=== PATIENT | female | born 1955 | race Caucasian/White ===

== ENCOUNTER 2017-10-24 21:33 | Emergency (ER) | payer BC ==
--- NOTE | 2017-10-24 22:28 | EDM.PDOC ---
ED HPI GENERAL MEDICAL PROBLEM - General Chief Complaint: Headache Stated Complaint: high blood pressure Time Seen by Provider: 10/24/17 22:06 Source of Information: Reports: Patient, Family (daughters) History Limitations: Reports: No Limitations - History of Present Illness INITIAL COMMENTS - FREE TEXT/NARRATIVE: Patient presents with episode of high blood pressure and a feeling of tingling and pain in both arms that she noticed about 5 hours ago. The symptoms persisted about 4 hours. Her mother's hospice nurse was there so checked her blood pressure at 189/90. She denies chest pain. She doesn't smoke and denies diabetes. She is under quite a bit of stress with her mother's deteriorating health. She denies any cardiac history. - Related Data Allergies Allergy/AdvReac Type Severity Reaction Status Date / Time No Known Drug Allergies Allergy Cannot Verified 10/24/17 21:50 Remember Home Meds: Home Meds Calcium Citrate/Vitamin D2 [Travis-Citrate Plus Vitamin D Tab] 1 tab PO DAILY 10/24 [History] Cholecalciferol (Vitamin D3) [Vitamin D] 5,000 units PO DAILY 10/24/17 [History] Loratadine 10 mg PO DAILY 10/24/17 [History] Magnesium 250 mg PO DAILY 10/24/17 [History] Melatonin 5 mg PO BEDTIME PRN 10/24/17 [History] Meloxicam 7.5 mg PO DAILY 10/24/17 [History] Pseudoephedrine HCl 60 mg PO BEDTIME 10/24/17 [History] Pseudoephedrine [Sudafed 12 Hour] 120 mg PO DAILY 10/24/17 [History] Venlafaxine [Effexor XR] 150 mg PO DAILY 10/24/17 [History] Vitamin 1 tab PO DAILY 10/24/17 [History] amLODIPine Besylate [Norvasc] 5 mg PO DAILY 10/24/17 [History] tiZANidine [Zanaflex] 4 mg PO TID PRN 10/24/17 [History] ED ROS GENERAL - Review of Systems Review Of Systems: See Below Constitutional: Denies: Fever, Chills, Malaise, Weakness, Diaphoresis HEENT: Reports: Other (For about a week she has sometimes had jaw pain when biting/chewing). Denies: Ear Pain, Vision Change Respiratory: Denies: Shortness of Breath, Cough Cardiovascular: Denies: Chest Pain, Lightheadedness, Syncope Endocrine: Reports: No Symptoms GI/Abdominal: Denies: Abdominal Pain, Diarrhea, Nausea, Vomiting : Denies: Dysuria, Flank Pain Musculoskeletal: Denies: Neck Pain, Shoulder Pain, Back Pain Skin: Denies: Cyanosis, Jaundice, Mottled, Pallor, Diaphoresis Neurological: Denies: Confusion, Dizziness, Headache, Seizure, Syncope, Trouble Speaking, Difficulty Walking Psychiatric: Reports: Anxiety. Denies: Agitation, Confusion ED EXAM, GENERAL - Physical Exam Exam: See Below Exam Limited By: No Limitations General Appearance: Alert, WD/WN, No Apparent Distress Eye Exam: Bilateral Eye: EOMI, Normal Inspection, PERRL Ears: Normal External Exam, Hearing Grossly Normal Nose: Normal Inspection, No Blood Throat/Mouth: Normal Inspection, Normal Lips, Normal Oropharynx, Normal Voice, No Airway Compromise Head: Atraumatic, Normocephalic Neck: Normal Inspection, Supple, Non-Tender, Full Range of Motion. No: Carotid Bruit, Lymphadenopathy (L), Lymphadenopathy (R) Respiratory/Chest: No Respiratory Distress, Lungs Clear, Normal Breath Sounds, No Accessory Muscle Use Cardiovascular: Normal Peripheral Pulses, Regular Rate, Rhythm, No Edema, No Gallop, No JVD, No Murmur Peripheral Pulses: 2+: Carotid (L), Carotid (R), Radial (L), Radial (R), Posterior Tibial (L), Posterior Tibial (R) GI/Abdominal: Normal Bowel Sounds, Soft, Non-Tender, No Organomegaly, No Distention, No Abnormal Bruit, No Mass Back Exam: Normal Inspection, Full Range of Motion. No: CVA Tenderness (L), CVA Tenderness (R) Extremities: Normal Inspection, Normal Range of Motion, Non-Tender, No Pedal Edema, Normal Capillary Refill, Other (5/5 symmetric strength of arms and legs) Neurological: Alert, Oriented, CN II-XII Intact, Normal Cognition, No Motor/ Sensory Deficits Psychiatric: Normal Affect, Normal Mood Skin Exam: Warm, Dry, Intact, Normal Color, No Rash Course - Vital Signs Last Recorded V/S: Last Vital Signs Temp 98.8 F 10/24/17 21:35 Pulse 92 10/24/17 21:35 Resp 18 10/24/17 21:35 BP 159/65 H 10/24/17 21:35 Pulse Ox 98 10/24/17 21:35 - Orders/Labs/Meds Labs: Laboratory Tests 10/24/17 10/24/17 Range/Units 22:50 22:50 WBC 6.6 (5.0-10.0) 10^3/uL RBC 4.22 (3.80-5.50) 10^6/uL Hgb 12.3 (12.0-16.0) g/dL Hct 37.6 (37.0-47.0) % MCV 88.9 (82.0-92.0) fL MCH 29.2 (27.0-31.0) pg MCHC 32.8 (32.0-36.0) g/dL RDW 13.9 (11.5-14.5) % Plt Count 275 (150-300) 10^3/uL MPV 7.4 (7.4-10.4) fL Neut % (Auto) 59.3 (50.0-70.0) % Lymph % (Auto) 28.3 (20.0-40.0) % Towner % (Auto) 8.9 H (2.0-8.0) % Eos % (Auto) 2.1 (1.0-3.0) % Baso % (Auto) 1.4 H (0.0-1.0) % Neut # (Auto) 3.9 (2.5-7.0) 10^3/uL Lymph # (Auto) 1.9 (1.0-4.0) 10^3/uL Towner # (Auto) 0.6 (0.1-0.8) 10^3/uL Eos # (Auto) 0.1 (0.1-0.3) 10^3/uL Baso # (Auto) 0.1 (0.0-0.1) 10^3/uL Sodium 141 (136-145) mmol/L Potassium 4.4 (3.3-5.3) mmol/L Chloride 101 (98-115) mmol/L Carbon Dioxide 30.1 (21.0-32.0) mmol/L BUN 12 (6-25) mg/dL Creatinine 0.77 (0.51-1.17) mg/dL Est Cr Clr Drug Dosing 71.78 mL/min Estimated GFR (MDRD) > 60 mL/min Glucose 91 (70-110) mg/dL Calcium 9.6 (8.7-10.3) mg/dL Troponin I < 0.04 (0.00-0.070) ng/mL - Re-Assessments/Exams Free Text/Narrative Re-Assessment/Exam: 10/24/17 23:38 Labs all normal. EKG normal. Discussed findings with patient and her two daughters. Patient is feeling very normal and ready to go home. Discharged to home in stable condition. Departure - Departure Time of Disposition: 23:36 Disposition: Home, Self-Care 01 Condition: Good Clinical Impression: Episode of hypertension Instructions: Managing Your Hypertension Forms: ED Department Discharge Additional Instructions: 1. Drink 8 cups of water daily. 2. Take your blood pressure medications as directed. 3. Follow up with your PCP in 3-4 days for recheck. Recheck ALCON if any worsening.
[2017-10-24 23:17] LABS: CHLORIDE,CL 101 mmol/L (98-115); SODIUM,NA 141 mmol/L (136-145)
== END 2017-10-24 23:40 | disposition home or self-care (01) ==
LOC: KA.ED 21:33
DX: I10 Essential (primary) hypertension (principal); Z79.899 Other long term (current) drug therapy
CPT/HCPCS: 36415; 80048; 84484; 85025; 99283